=== PATIENT | male | born 1940 | race Caucasian/White ===

== ENCOUNTER 2021-03-29 08:59 | Observation (INO) | payer MEDICARE ==
[2021-03-29] MEDS ORDERED: Pantoprazole 40 MG VIAL ONE ×2 (09:51→11:48)
[2021-03-29 10:12] LABS: Bilirubin Neg (Negative); Blood, Urine 10 (Negative); Clarity Clear (Clear); Glucose, Urine (Dipstick) Normal (Negative); Ketone, Urine Negative (Negative); Leukocyte Negative (Negative); Nitrite Negative (Negative); Protein, Urine (Dipstick) Negative (Neg-Trace); Urobilinogen Normal mg/dL (Less than 2)
[2021-03-29 10:19] LABS: #Monocytes 0.7 10x3/uL (0.0-1.1); #Neutrophils 5.1 10x3/uL (1.5-8.4); %Basophils 0.3 % (0.0-2.0); %Eosinophils 0.3 % (0.0-6.0); %Monocytes 10.3 % (0.0-10.0); %Neutrophils 71.8 % (40.0-75.0); Hemoglobin 12.3 g/dL (13.5-17.5); Mean Corpuscular HGB CONC 32.6 g/dL (32.0-36.0); Mean Corpuscular Hemoglobin 31.5 pg (27.0-33.0); Mean Corpuscular Volume 96.7 fl (81.2-95.1); Mean Platelet Volume 10.6 fl (7.4-10.4); Platelet Count 167 10x3/uL (150-450); White Blood Cell (WBC) Count 7.1 10x3/uL (3.5-10.5)
[2021-03-29 10:26] LABS: Bacteria/HPF None Seen HPF (None Seen); RBC/HPF 0-3 HPF (0-3); Squamous Epithelial None Seen HPF (0-3); WBC/HPF None Seen HPF (0-3)
[2021-03-29 10:33] LABS: PTT 28.3 sec (22.0-33.0); Prothrombin Time 10.7 sec (9.5-12.1)
[2021-03-29 10:41] LABS: ALT (SGPT) 12 U/L (8-55); AST (SGOT) 19 U/L (5-34); Albumin 3.5 g/dL (3.4-4.8); Alkaline Phosphatase 57 U/L (40-110); Anion Gap 11 mmol/L (10-20); BUN (Urea Nitrogen) 24 mg/dL (8.4-25.7); Bilirubin, Total 0.3 mg/dL (0.2-1.2); Calc. Creatinine Clearance 0 mL/min (70-130); Calcium 8.6 mg/dL (7.8-10.44); Carbon Dioxide 26 mmol/L (23-31); Chloride 103 mmol/L (98-107); Globulin 2.5 g/dL (2.4-3.5); Glucose 101 mg/dL (83-110); Potassium 4.2 mmol/L (3.5-5.1); Sodium 136 mmol/L (136-145)
[2021-03-29 11:12] LABS: SARS-CoV-2 NAA Rapid Test DETECTED (NotDetected)
[2021-03-29] MEDS ORDERED: Ondansetron PF 4 MG/2 ML Vial IVP PRN (15:01)
[2021-03-29] MEDS ORDERED: Acetaminophen 650 MG Suppository PR PRN (15:01)
[2021-03-29] MEDS ORDERED: Ondansetron ODT 4 MG TAB PO PRN (15:01)
[2021-03-29 15:46] LABS: Hemoglobin 12.2 g/dL (13.5-17.5)
[2021-03-29 17:52] VITALS: BMI 21.6
[2021-03-29] MEDS: Carvedilol 25 MG TAB PO SCH (18:06)
[2021-03-29] MEDS ORDERED: FLU VACC QS2021-22(65YR UP)/PF 240 MCG/0.7 ML SYRINGE IM ONE (19:30)
[2021-03-29] MEDS ORDERED: traMADol HCl 50 MG TAB PO SCH (20:30)
[2021-03-29] MEDS: Pantoprazole 40 MG VIAL IVP SCH (20:38)
[2021-03-29] MEDS: Fluticasone Propionate Nasal Spray 16 gm Bottle NASAL SCH (21:13)
[2021-03-29 21:43] LABS: Hemoglobin 11.9 g/dL (13.5-17.5)
[2021-03-29] MEDS: Acetaminophen 325 MG TAB PO PRN (22:44)
[2021-03-30] MEDS: traMADol HCl 50 MG TAB PO PRN ×3 (03:36→23:47)
[2021-03-30 06:24] LABS: #Monocytes 0.9 10x3/uL (0.0-1.1); #Neutrophils 3.9 10x3/uL (1.5-8.4); %Basophils 0.3 % (0.0-2.0); %Eosinophils 0.2 % (0.0-6.0); %Lymphocytes 20.9 % (18.0-47.0); %Monocytes 14.8 % (0.0-10.0); %Neutrophils 63.5 % (40.0-75.0); Mean Corpuscular HGB CONC 32.3 g/dL (32.0-36.0); Mean Corpuscular Hemoglobin 31.1 pg (27.0-33.0); Mean Corpuscular Volume 96.3 fl (81.2-95.1); Mean Platelet Volume 10.8 fl (7.4-10.4); Platelet Count 160 10x3/uL (150-450); RBC Distribution Width 12.7 % (11.5-14.5); Red Blood Cell (RBC) Count 3.54 10x6/uL (4.32-5.72); White Blood Cell (WBC) Count 6.2 10x3/uL (3.5-10.5)
[2021-03-30 06:53] LABS: Anion Gap 12 mmol/L (10-20); BUN (Urea Nitrogen) 20 mg/dL (8.4-25.7); Calc. Creatinine Clearance 41 mL/min (70-130); Calcium 8.5 mg/dL (7.8-10.44); Carbon Dioxide 25 mmol/L (23-31); Chloride 105 mmol/L (98-107); Glucose 85 mg/dL (83-110); Potassium 3.6 mmol/L (3.5-5.1); Sodium 138 mmol/L (136-145)
[2021-03-30] MEDS: Pantoprazole 40 MG VIAL IVP SCH ×2 (08:05→20:16)
[2021-03-30] MEDS: Atorvastatin Calcium 40 MG TAB PO SCH (08:05)
[2021-03-30] MEDS: Carvedilol 25 MG TAB PO SCH ×2 (08:05→16:54)
[2021-03-30 09:42] LABS: Hemoglobin 11.2 g/dL (13.5-17.5)
[2021-03-30 15:16] LABS: Hemoglobin 11.1 g/dL (13.5-17.5)
[2021-03-30] MEDS: Acetaminophen 325 MG TAB PO PRN ×2 (16:54→21:21)
[2021-03-30 21:37] LABS: Hemoglobin 11.6 g/dL (13.5-17.5)
[2021-03-31] MEDS: Acetaminophen 325 MG TAB PO PRN (03:31)
[2021-03-31 04:52] LABS: Anion Gap 15 mmol/L (10-20); BUN (Urea Nitrogen) 17 mg/dL (8.4-25.7); Calc. Creatinine Clearance 40 mL/min (70-130); Calcium 8.4 mg/dL (7.8-10.44); Carbon Dioxide 20 mmol/L (23-31); Chloride 107 mmol/L (98-107); Glucose 79 mg/dL (83-110); Sodium 138 mmol/L (136-145)
[2021-03-31 04:59] LABS: #Monocytes 1.1 10x3/uL (0.0-1.1); #Neutrophils 7.6 10x3/uL (1.5-8.4); %Basophils 0.2 % (0.0-2.0); %Eosinophils 0.2 % (0.0-6.0); %Lymphocytes 11.7 % (18.0-47.0); %Monocytes 10.6 % (0.0-10.0); %Neutrophils 77.1 % (40.0-75.0); Hemoglobin 11.3 g/dL (13.5-17.5); Mean Corpuscular HGB CONC 32.6 g/dL (32.0-36.0); Mean Corpuscular Hemoglobin 31.6 pg (27.0-33.0); Mean Corpuscular Volume 96.9 fl (81.2-95.1); Mean Platelet Volume 11.8 fl (7.4-10.4); Platelet Count 146 10x3/uL (150-450); RBC Distribution Width 12.8 % (11.5-14.5); Red Blood Cell (RBC) Count 3.58 10x6/uL (4.32-5.72); White Blood Cell (WBC) Count 9.9 10x3/uL (3.5-10.5)
[2021-03-31 07:00] LABS: Platelet Morphology Comment PLT clumps seen-ADEQ; RBC Morphology Normal
[2021-03-31] MEDS: Atorvastatin Calcium 40 MG TAB PO SCH (09:46)
[2021-03-31] MEDS: Fluticasone Propionate Nasal Spray 16 gm Bottle NASAL SCH (09:46)
[2021-03-31] MEDS: Carvedilol 25 MG TAB PO SCH (09:46)
[2021-03-31 12:18] VITALS: BP 143/59; TEMP 98.2
== END 2021-03-31 17:20 | disposition home or self-care (01) ==
LOC: CSHERS 08:59 → INTOOBSV 16:11 → CSHTELE 16:11
PROVIDERS: ADMIT Family Medicine; ATTEND Family Medicine
DX: K92.2 Gastrointestinal hemorrhage, unspecified (principal); D62 Acute posthemorrhagic anemia; U07.1 COVID-19; E78.5 Hyperlipidemia, unspecified; I25.10 Atherosclerotic heart disease of native coronary artery without angina pectoris; Z95.1 Presence of aortocoronary bypass graft; I25.2 Old myocardial infarction; Z95.810 Presence of automatic (implantable) cardiac defibrillator; N40.0 Benign prostatic hyperplasia without lower urinary tract symptoms; I12.9 Hypertensive chronic kidney disease with stage 1 through stage 4 chronic kidney disease, or unspecified chronic kidney disease; N18.30 Chronic kidney disease, stage 3 unspecified; Z79.899 Other long term (current) drug therapy; Z79.02 Long term (current) use of antithrombotics/antiplatelets; Z86.73 Personal history of transient ischemic attack (TIA), and cerebral infarction without residual deficits
CPT/HCPCS: 80048 ×2; 80053; 85014 ×2; 85018 ×2; 85025 ×3; 85610; 85730; 93005; 94760 ×2; 96365; 96366; 97139; 99285; U0002; 36415; 81003; 81015; 82274; 93010; C9113; J2405; Q0162